=== PATIENT | male | born 1955 | race Caucasian/White ===

== ENCOUNTER 2018-10-11 10:08 | Day surgery (SDC) | payer OTHER ==
[~2018-10-11 10:08] MED LIST: Lactated Ringers 1,000 ML IV SCH
[2018-10-11] MEDS ORDERED: Propofol 200 MG/20 ML SDV ONE (11:50)
[2018-10-11] MEDS ORDERED: Midazolam 1 MG/ML 2 ML SDV ONE (11:50)
[2018-10-11] MEDS ORDERED: fentaNYL 100 MCG/2 ML SDV ONE (11:50)
--- NOTE | 2018-10-11 18:09 | OR ---
PRE-OPERATIVE DIAGNOSIS: Colon cancer screening. The patient's last colonoscopy was in about 2007. No known family history of colon cancer or colon polyps. POST-OPERATIVE DIAGNOSES: 1. Two polyps removed, both using hot snare. a. 6 mm polyp at 90 cm. b. 10 mm polyp at 20 cm. 2. Mild sigmoid diverticulosis. 3. Normal-appearing distal ileum. PROCEDURE: Colonoscopy with polypectomy x2 using hot snare. ANESTHESIA: Monitored anesthesia care. BOWEL PREP: Good. DESCRIPTION OF PROCEDURE: Jude is a 63-year-old male who was brought to the endoscopy suite after discussing risks and benefits of the procedure. Informed consent was obtained for conscious sedation and colonoscopy with or without biopsy and/or polypectomy. We also discussed possibility of missed lesions. Pre-procedure exam was unremarkable. IV, oxygen, and monitors were placed. The patient was placed in the left lateral decubitus position. Sedation was administered and a digital rectal exam was performed and unremarkable. Colonoscope was passed into the rectum and slowly advanced all the way to the cecum. Cecum was viewed and photographed. Ileocecal valve was intubated and distal ileum was normal in appearance. The colonoscope was slowly withdrawn and the mucosa was closed observed in a direct circumferential manner. The ascending colon was remarkable for a 6 mm polyp at 90 cm, removed using hot snare. The transverse colon was unremarkable. Descending colon, unremarkable. The sigmoid colon revealed some mild diverticulosis. There was also a 10 mm polyp at 20 cm, removed using hot snare. Retroflexion was performed. Rectal mucosa unremarkable. Scope was removed. The patient tolerated the procedure well. The patient was monitored until that baseline status. Discharge instructions were reviewed and the patient was discharged in good condition. COMPLICATIONS: None. TOTAL TIME: 19 minutes. ESTIMATED BLOOD LOSS: None. RECOMMENDATIONS/FOLLOW-UP: We will await results of path report to determine ideal followup interval. I would like to kindly thank Hamida Vasquez for this referral. DMB: 10/11/2018 12:56:10 MODL: 10/11/2018 18:01:21 /[id number]
== END 2018-10-11 13:20 | disposition home or self-care (01) ==
LOC: VM.SDS 10:08
PROVIDERS: ATTEND Family Medicine
DX: Z12.11 Encounter for screening for malignant neoplasm of colon (principal); D12.2 Benign neoplasm of ascending colon; K63.5 Polyp of colon; K57.30 Diverticulosis of large intestine without perforation or abscess without bleeding; K21.9 Gastro-esophageal reflux disease without esophagitis; I10 Essential (primary) hypertension; E78.00 Pure hypercholesterolemia, unspecified; D50.9 Iron deficiency anemia, unspecified; G47.33 Obstructive sleep apnea (adult) (pediatric); R73.01 Impaired fasting glucose; Z79.82 Long term (current) use of aspirin; Z79.899 Other long term (current) drug therapy
CPT/HCPCS: 45385; J2250; J2704; J3010; J7120; 45384

== ENCOUNTER 2024-03-21 08:44 | Day surgery (SDC) | payer MEDICARE, OTHER ==
[2024-03-21] MEDS: Lactated Ringers 1,000 ML IV SCH (09:18)
[2024-03-21] MEDS ORDERED: fentaNYL 100 MCG/2 ML SDV ONE (09:52)
[2024-03-21] MEDS ORDERED: Propofol 200 MG/20 ML SDV ONE (09:52)
[2024-03-21] MEDS: Citric Acid/Sodium Citrate Solution 30 ML Cup PO SCH (10:15)
[2024-05-09] MEDS ORDERED: Lactated Ringers 1,000 ML IV SCH (07:00)
== END 2024-03-21 12:22 | disposition home or self-care (01) ==
LOC: VM.SDS 08:44
PROVIDERS: ATTEND Family Medicine
DX: Z12.11 Encounter for screening for malignant neoplasm of colon (principal); D12.6 Benign neoplasm of colon, unspecified; K57.30 Diverticulosis of large intestine without perforation or abscess without bleeding; Z86.0100 Personal history of colon polyps, unspecified; I10 Essential (primary) hypertension; E78.2 Mixed hyperlipidemia; K21.9 Gastro-esophageal reflux disease without esophagitis; Z79.899 Other long term (current) drug therapy
CPT/HCPCS: 00811; 88305; A9270-GY; J2704; J3010; J7120